=== PATIENT | female | born 1945 | race Caucasian/White ===

== ENCOUNTER → 2016-10-09 | Outpatient (CLI) | payer BC ==
[~2016-10-09] MED LIST: ASPIRIN E.C. 8181 MG PO; CALCIUM1 CAP PO; DUO-KAPS1 CAP PO; PRINZIDE 12.5 M1 TAB PO
== END ==
LOC: MC.RAD 08:33
DX: Z12.31 Encounter for screening mammogram for malignant neoplasm of breast (principal)

== ENCOUNTER → 2018-11-12 | Outpatient (CLI) | payer BC | LOC: MC.RAD 07:41 | DX: Z12.31 Encounter for screening mammogram for malignant neoplasm of breast (principal) ==

== ENCOUNTER 2019-02-17 15:11 | Emergency (ER) | payer BC ==
[~2019-02-17] VITALS: Ht 162.6 cm; Wt 65.9 kg
[2019-02-17 15:24] VITALS: TEMP 98.5
[2019-02-17] MEDS ORDERED: NORCO 325 MG-51 TAB PO (16:58)
[2019-02-17 17:53] VITALS: BP 120/73; PULSE 85
== END 2019-02-17 17:53 | disposition home or self-care (01) ==
LOC: COL.ER 15:11
DX: S52.102A Unspecified fracture of upper end of left radius, initial encounter for closed fracture (principal); S52.602A Unspecified fracture of lower end of left ulna, initial encounter for closed fracture; S82.831A Other fracture of upper and lower end of right fibula, initial encounter for closed fracture; R40.2412 Glasgow coma scale score 13-15, at arrival to emergency department; I10 Essential (primary) hypertension; Z79.82 Long term (current) use of aspirin; W01.0XXA Fall on same level from slipping, tripping and stumbling without subsequent striking against object, initial encounter
CPT/HCPCS: J2405; J2704; J3010; J7030